=== PATIENT | male | born 2000 | race Caucasian/White ===

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

== ENCOUNTER 2019-06-16 08:43 | Outpatient (CLI) | payer MEDICAID, SELFPAY ==
[2019-06-17 18:56] LABS: COVID-19 RT-PCR UVMMC Result Negative (Negative)
== END 2019-06-16 09:03 ==
PROVIDERS: PCP Pediatrics; Visit Provider Pediatrics
DX: R50.9 Fever, unspecified (principal)
CPT/HCPCS: U0003

== ENCOUNTER 2020-05-03 08:37 | Outpatient (CLI) | payer MEDICAID, SELFPAY ==
[2020-05-04 16:02] LABS: COVID-19 RT-PCR UVMMC Result Negative (Negative)
== END 2020-05-03 08:38 | disposition home or self-care (01) ==
PROVIDERS: PCP Pediatrics; Visit Provider Nurse Practitioner Family
DX: Z20.822 Contact with and (suspected) exposure to COVID-19 (principal)
CPT/HCPCS: U0003

== ENCOUNTER 2020-05-29 10:31 | Outpatient (CLI) | payer MEDICAID, SELFPAY ==
[2020-05-30 11:19] LABS: COVID-19 RT-PCR UVMMC Result Negative (Negative)
== END 2020-05-29 10:32 | disposition home or self-care (01) ==
PROVIDERS: PCP Pediatrics; Visit Provider Pediatrics
DX: Z20.822 Contact with and (suspected) exposure to COVID-19 (principal)
CPT/HCPCS: U0003

== ENCOUNTER 2020-07-10 19:38 | Emergency (ER) | payer MEDICAID, SELFPAY ==
[2020-07-10 19:41] VITALS: BP 108/69; PULSE 73; RESP 16; TEMP 36.8; O2SAT 98
--- NOTE | 2020-07-10 19:51 | ED.GENADUL_ITS ---
Discharge Plan Disposition Patient Disposition: HOME Condition: Improving Discharge Details Clinical Impression: Laceration of scalp Primary Care Provider: Dyana Flores ED Provider: Nikko Lanza Home Meds and New Rx's Prescriptions: Continued naproxen [Naprosyn] 500 mg tablet 500 mg PO BID PRN (Reason: pain) Qty: 30 RF: 0 albuterol sulfate [ProAir HFA] 8.5 GM HFA aerosol inhaler 2 puff Inhalation Q4H PRN Qty: 1 RF: 2 ibuprofen 200 mg Tablet 600 mg PO PRN PRNRF: 0 Discharge Instructions Instructions: Laceration (ED) Additional Instructions: Return in 1 week for removal of ricco. Home care as we discussed. Tylenol and/or ibuprofen as needed for pain. Return to the ER for any acute concerns. Medical Decision Making 20-year-old otherwise healthy male presents after accidentally striking his scalp on a car windshield and suffering a scalp injury. He was not cut by glass per se, it was blunt force. Denies other injury. Did not fall or injure himself in any other way. States his tetanus is up-to-date. Patient anesthetized, the wound examined in a bloodless field, liberally irrigated, no evidence of foreign body. Closed with 10 surgical ricco. Patient stable and improved. He understands homecare, wound care, return indications for reevaluation in the emergency department. HPI General Mode of arrival: ambulatory . Date/Time Provider Initiated Documentation: 07/10/20 19:38 . Limitations to Documentation: no limitations . Information obtained by: patient . History of Present Illness 20 year old M presents to the emergency department with the chief complaint of Scalp laceration, described as mild, Quality is described as dull and constant, and is localized to the head. Patient reports no radiation. Patient started experiencing this minute(s) and it has been constant. No relieving factors improve symptom(s), No exacerbating factors reported . Patient notes no other symptoms.. Patient did receive the following treatments prior to arrival, none Related Data Home Medications Medication Instructions Recorded Confirmed albuterol sulfate [ProAir HFA] 2 puff INHALATION Q4H PRN #1 09/22/16 07/10/20 inhaler ibuprofen 600 mg PO PRN PRN 12/23/18 07/10/20 naproxen 500 mg tablet 500 mg PO BID PRN #30 tab 02/11/19 07/10/20 Previous Rx's Medication Instructions Recorded naproxen 500 mg tablet 500 mg PO BID PRN #30 tab 02/11/19 Allergies Allergy/AdvReac Type Severity Reaction Status Date / Time No Known Allergies Allergy Unverified 07/10/20 19:46 General Stated Complaint: Laceration AP: 4 Review of Systems Narrative: Tetanus up-to-date, no other injury, no loss of consciousness, denies headache, no neck pain. PFSH Medical History Acne Crush injury History of depression Intermittent asthma Laceration Recurrent AOM (acute otitis media) PE tubes RSV infection admitted to hospital Surgical History Myringotomy w/ PE (pressure equalizing) tubes 2 sets Family History Mother Lupus (systemic lupus erythematosus) Mental disorder depression Asthma Father No problems noted. Sister Mental disorder depression Asthma grandparent Essential hypertension Personal history of malignant neoplasm Heart disease Hyperlipidemia Social History Smoking/Tobacco Use Status: Never Smoking risk assessment performed?: Yes Alcohol Intake: never Drug use: Never Substance use type: does not use Do you feel safe at home: Yes Do you feel safe in your relationship?: Yes Exam Narrative Exam Narrative: GEN: awake, alert, oriented 3. Pleasant, well groomed, interactive. HEAD: Normocephalic, vertically oriented 1.5 inch laceration through the depth of the dermis, galea not involved, no foreign body seen ENT: Mucous membranes moist, oropharynx unremarkable, External ear exam unremarkable EYES: PERRL, EOMI NECK: Full ROM, no STEPHANIE, no menigismus CHEST/RESP: No respiratory distress EXT: Full ROM, no edema, no rash Neuro: Grossly normal neurologic exam, conversant, interactive. Psych: Speech fluent, thoughts congruent, affect normal Course Vital Signs Vital signs: Vital Signs Temperature 36.8 C 07/10/20 19:41 Pulse 73 07/10/20 19:41 Respiratory Rate 16 07/10/20 19:41 Blood Pressure 108/69 07/10/20 19:41 Pulse Oximetry 98 07/10/20 19:41 Temperature 36.8 C 07/10/20 19:41 Temperature Source Temporal Artery Scan 07/10/20 19:41 Pulse 73 07/10/20 19:41 Respiratory Rate 16 07/10/20 19:41 Respiratory Effort 07/10/20 19:44 Respiratory Depth Normal 07/10/20 19:50 Blood Pressure 108/69 07/10/20 19:41 Blood Pressure Position Sitting 07/10/20 19:41 Pulse Oximetry 98 07/10/20 19:41 Oxygen Delivery Method Room Air 07/10/20 19:41 Oxygen Flow Rate 0 07/10/20 19:41 Pain Level 3 07/10/20 19:44 Procedures Laceration Laceration 1: Site: scalp Size (cm): 4 Description: linear Depth: simple, single layer Local Anesthetic: Lidocaine 1% Amount of anesthesia used (mL): 4 Pre-repair: wound explored, irrigated extensively and deep structures intact Skin layer closed with: other (Surgical ricco total #10)
== END 2020-07-10 19:57 | disposition home or self-care (01) ==
PROVIDERS: Emergency Provider Emergency Medicine; PCP Pediatrics
DX: S01.01XA Laceration without foreign body of scalp, initial encounter (principal); W22.8XXA Striking against or struck by other objects, initial encounter
CPT/HCPCS: 12002

== ENCOUNTER 2020-07-12 19:28 | Emergency (ER) | payer MEDICAID, SELFPAY ==
[2020-07-12 19:32] VITALS: BP 131/79; PULSE 64; RESP 18; O2SAT 100
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
[2020-07-12] MEDS: Normal Saline 1,000 ML 1000 ML IV (19:45)
[2020-07-12 19:51] LABS: Abs Immature Grans 0.03 10^3/uL (0.0-0.06); Absolute Basophil Count 0.04 10^3/uL (0.0-0.2); Absolute Eosinophil Count 0.08 10^3/uL (0.0-0.7); Absolute Lymphocyte Count 4.62 10^3/uL (1.2-3.4); Absolute Neutrophil Count 4.43 10^3/uL (1.2-6.7); Basophils % 0.4; Eosinophils % 0.8; HCT 43.1 % (40.0-50.0); HGB 14.6 g/dL (13.5-17.5); Immature Grans % 0.3; Lymphocytes % 46.2; MCH 29.7 pg (27.0-33.0); MCHC 33.9 % (32.0-36.0); MCV 87.8 fL (80-95); MPV 9.1 fL (8.0-11.0); Neutrophils % 44.3; Nucleated RBC 0 %; Platelet Count 359 10^3/uL (130-400); RBC 4.91 10^6/uL (4.36-5.78); RDW 11.7 % (11.8-14.1); RDW-SD 37.5 fL
[2020-07-12] MEDS: Bacitracin 30 GM TUBE (20:00)
[2020-07-12 20:03] LABS: ALT 21 U/L (16-63); AST 16 U/L (15-37); Albumin 4.4 g/dL (3.4-5.0); Alkaline Phosphatase 82 U/L (46-116); Anion Gap 10.2 mmol/L (3-11); BUN 12 mg/dL (7-18); Bilirubin, Total 0.6 mg/dL (0.2-1.0); CO2 28.8 mmol/L (21.0-32.0); CREATININE 1.1 mg/dL (0.70-1.30); Calcium 9.2 mg/dL (8.5-10.1); Chloride 103 mmol/L (98-107); Glucose 160 mg/dL (74-106); Potassium 3.5 mmol/L (3.5-5.1); Sodium 142 mmol/L (136-145); Total Protein 7.8 g/dL (6.4-8.2)
[2020-07-12 20:27] LABS: BE (Venous) 2 mmol/L (-2-3); HCO3 (Venous) 28 mmol/L (23-28); O2 Sat (Venous) 57 %; TCO2 (Venous) 26 mmol/L (24-29); pCO2 (Venous) 52 mmHg (41-51); pH (Venous) 7.34 (7.31-7.41); pO2 (Venous) 32 mmHg
[2020-07-12] MEDS: Ondansetron 4 MG/2 ML VIAL IVP (20:30)
[2020-07-12 20:35] VITALS: BP 113/60; PULSE 78; O2SAT 100
== END 2020-07-12 20:34 | disposition short-term general hospital (02) ==
PROVIDERS: Emergency Provider Physician Assistant; PCP Pediatrics
DX: T20.26XA Burn of second degree of forehead and cheek, initial encounter (principal); T22.211A Burn of second degree of right forearm, initial encounter; T20.19XA Burn of first degree of multiple sites of head, face, and neck, initial encounter; X03.8XXA Other exposure to controlled fire, not in building or structure, initial encounter
CPT/HCPCS: 16000; 36415; 80053; 82805; 96361; 96375; 99291; 85025; J2405

== ENCOUNTER 2020-10-10 09:27 | Emergency (ER) | payer MEDICAID, SELFPAY ==
--- NOTE | 2020-10-10 09:30 | DI.RAD_ITS ---
Exam(s) XR ANKLE LT COMPLETE EXAM: XR ANKLE LT COMPLETE CLINICAL HISTORY: Injury, R/O Fracture TECHNIQUE: 2D digital imaging was performed. COMPARISON: No exams were available for comparison FINDINGS: BONES: No acute fracture is present. No bony destructive lesion is seen. JOINTS:The ankle mortise is normally aligned. SOFT TISSUE: Normal. IMPRESSION: Unremarkable radiographs of the left ankle. DATA REPOSITORY: RADIATION DOSE DELIVERED:
[2020-10-10 09:33] VITALS: BP 115/70; PULSE 76; RESP 16; TEMP 36.8; O2SAT 98
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
[2020-10-10 11:48] VITALS: BP 110/70; PULSE 70; RESP 16; TEMP 36.8; O2SAT 98
== END 2020-10-10 11:49 | disposition home or self-care (01) ==
PROVIDERS: Emergency Provider Registered Nurse Emergency; PCP Pediatrics
DX: S93.492A Sprain of other ligament of left ankle, initial encounter (principal); W17.89XA Other fall from one level to another, initial encounter; X50.9XXA Other and unspecified overexertion or strenuous movements or postures, initial encounter
CPT/HCPCS: 29515; 99283; 73610

== ENCOUNTER 2022-07-23 17:43 | Outpatient (REF) | payer MEDICAID, SELFPAY ==
[2022-07-25 15:03] LABS: Chlamydia Result Negative (Negative); GC Result Negative (Negative)
== END 2022-07-23 17:44 | disposition home or self-care (01) ==
LOC: LBN 17:43
PROVIDERS: Visit Provider Nurse Practitioner Family
DX: Z11.3 Encounter for screening for infections with a predominantly sexual mode of transmission (principal)
CPT/HCPCS: 87491; 87591

== ENCOUNTER 2022-07-25 02:48 | Outpatient (CLI) | payer MEDICAID, SELFPAY ==
[2022-07-28 11:03] LABS: Syphilis Serology (RPR) Negative (Negative)
[2022-07-28 11:11] LABS: Hepatitis C Ab w Rflx HCV PCR Negative (Negative)
[2022-07-28 11:35] LABS: HIV-1/2 Ag & Ab Screen Negative (Negative)
[2022-07-28 12:25] LABS: HSV Type 1 Ab, IgG Negative (Negative); HSV Type 2 Ab, IgG Negative (Negative)
== END 2022-07-25 02:49 | disposition home or self-care (01) ==
LOC: LBO 02:48
PROVIDERS: Visit Provider Nurse Practitioner Family
DX: Z11.3 Encounter for screening for infections with a predominantly sexual mode of transmission (principal)
CPT/HCPCS: 36415; 86803; 87389; 86592; 86695; 86696